=== PATIENT | male | born 1950 | race Caucasian/White ===

== ENCOUNTER → 2018-07-24 07:29 | Outpatient (CLI) | payer MEDICARE, SELFPAY ==
[2018-07-24 09:24] LABS: Alanine Aminotransferase 40 IU/L (21-72); Albumin 4.4 g/dL (3.5-5.0); Albumin Globulin Ratio 1.6 (1.0-2.8); Alkaline Phosphatase 115 U/L (38-126); Aspartate Aminotransferase 40 IU/L (17-59); BUN Creatinine Ratio 17.5 (6-22); Bilirubin Total 0.5 mg/dL (0.2-1.3); Blood Urea Nitrogen 21 mg/dL (9-20); Calcium 9.1 mg/dL (8.4-10.2); Carbon Dioxide 24 mmol/L (22-32); Chloride 103 mmol/L (98-107); Cholesterol 212 mg/dL (140-199); Estimated Glomerular Filt Rate > 60.0 mL/min (>60); Globulin 2.7 g/dL (1.7-4.1); Glucose 88 mg/dL (80-110); HDL Cholesterol 63 mg/dL (40-60); HEMOLYSIS < 15 (0-50); LDL Cholesterol Calculated 126 mg/dL (<100); Potassium 4.6 mmol/L (3.4-5.1); Sodium 138 mmol/L (137-145); Total Protein 7.1 g/dL (6.3-8.2); Triglycerides 114 mg/dL (35-150)
[2018-07-24 09:54] LABS: Prostate Specific Antigen Scrn 0.814 ng/mL (0.1-4.0)
== END ==
PROVIDERS: Family Provider Internal Medicine; PCP Internal Medicine; Visit Provider Internal Medicine
DX: E78.5 Hyperlipidemia, unspecified (principal); K21.9 Gastro-esophageal reflux disease without esophagitis; Z12.5 Encounter for screening for malignant neoplasm of prostate
CPT/HCPCS: 36415; 80053; 80061; G0103

== ENCOUNTER → 2019-11-08 07:39 | Outpatient (CLI) | payer MEDICARE, SELFPAY ==
[2019-11-08 08:12] LABS: Alanine Aminotransferase 31 IU/L (<50); Albumin 4.5 g/dL (3.5-5.0); Albumin Globulin Ratio 1.4 (1.0-2.8); Alkaline Phosphatase 122 U/L (38-126); Aspartate Aminotransferase 45 IU/L (17-59); BUN Creatinine Ratio 18.6 (6-22); Bilirubin Total 0.6 mg/dL (0.2-1.3); Blood Urea Nitrogen 19 mg/dL (9-20); Calcium 9.3 mg/dL (8.4-10.2); Carbon Dioxide 25 mmol/L (22-32); Chloride 106 mmol/L (98-107); Cholesterol 232 mg/dL (140-199); Estimated Glomerular Filt Rate > 60.0 mL/min (>60); Globulin 3.2 g/dL (1.7-4.1); Glucose 131 mg/dL (80-110); HDL Cholesterol 61 mg/dL (40-60); HEMOLYSIS < 15 (0-50); LDL Cholesterol Calculated 154 mg/dL (<100); Potassium 4.6 mmol/L (3.4-5.1); Sodium 138 mmol/L (137-145); Total Protein 7.7 g/dL (6.3-8.2); Triglycerides 86 mg/dL (35-150)
[2019-11-08 08:40] LABS: Prostate Specific Antigen Scrn 0.512 ng/mL (0.1-4.0)
== END ==
PROVIDERS: Family Provider Internal Medicine; PCP Internal Medicine; Referring Provider Internal Medicine; Visit Provider Internal Medicine
DX: Z12.5 Encounter for screening for malignant neoplasm of prostate (principal); Z13.1 Encounter for screening for diabetes mellitus; Z13.6 Encounter for screening for cardiovascular disorders; E78.5 Hyperlipidemia, unspecified
CPT/HCPCS: 36415; 80053; 80061; G0103

== ENCOUNTER → 2020-03-30 11:22 | Outpatient (CLI) | payer MEDICARE, SELFPAY ==
[2020-03-31 12:02] LABS: COVID19 Sendout Not Detected (Not Detected)
== END ==
PROVIDERS: Family Provider Internal Medicine; PCP Internal Medicine; Visit Provider Physician Assistant
DX: Z11.59 Encounter for screening for other viral diseases (principal)
CPT/HCPCS: 87635

== ENCOUNTER → 2020-08-21 09:34 | Outpatient (CLI) | payer MEDICARE, SELFPAY ==
[2020-08-21] MEDS: COVID-19 VACC, Ad26(JANSSEN)/PF 0.5 ML IM (09:44)
== END ==
PROVIDERS: Family Provider Internal Medicine; PCP Internal Medicine; Visit Provider Internal Medicine
DX: Z23 Encounter for immunization (principal)
CPT/HCPCS: 0031A; 91303

== ENCOUNTER → 2021-08-01 07:15 | Outpatient (CLI) | payer MEDICARE, SELFPAY ==
[2021-08-01 09:12] LABS: Alanine Aminotransferase 28 IU/L (<50); Albumin 4.3 g/dL (3.5-5.0); Albumin Globulin Ratio 1.5 (1.0-2.8); Alkaline Phosphatase 107 U/L (38-126); Aspartate Aminotransferase 37 IU/L (17-59); BUN Creatinine Ratio 18.3 (6-22); Bilirubin Total 0.4 mg/dL (0.2-1.3); Blood Urea Nitrogen 20 mg/dL (9-20); Calcium 9.1 mg/dL (8.4-10.2); Carbon Dioxide 27 mmol/L (22-32); Chloride 105 mmol/L (98-107); Cholesterol 203 mg/dL (140-199); Estimated Glomerular Filt Rate > 60.0 mL/min (>60); Globulin 2.8 g/dL (1.7-4.1); Glucose 109 mg/dL (80-110); HDL Cholesterol 56 mg/dL (40-60); HEMOLYSIS < 15 (0-50); LDL Cholesterol Calculated 130 mg/dL (<100); Potassium 4.7 mmol/L (3.4-5.1); Sodium 138 mmol/L (137-145); Total Protein 7.1 g/dL (6.3-8.2); Triglycerides 83 mg/dL (35-150)
== END ==
PROVIDERS: Family Provider Internal Medicine; PCP Internal Medicine; Referring Provider Internal Medicine; Visit Provider Internal Medicine
DX: Z13.6 Encounter for screening for cardiovascular disorders (principal); Z13.1 Encounter for screening for diabetes mellitus; Z13.220 Encounter for screening for lipoid disorders; Z00.00 Encounter for general adult medical examination without abnormal findings
CPT/HCPCS: 36415; 80053; 80061

== ENCOUNTER 2022-07-16 06:39 | Day surgery (SDC) | payer MEDICARE, SELFPAY ==
[2022-07-12 13:43] VITALS: BMI 28.5
[2022-07-16] VITALS (7 sets, daily range): BP systolic 94–169; BP diastolic 50–97; PULSE 60–81; RESP 10–20; TEMP 36.1–36.6; O2SAT 97–99; BMI 28.5
[2022-07-16] MEDS: LACTATED RINGERS 1,000 ML 42 ML IV ×2 (07:35→08:46)
--- NOTE | 2022-07-16 07:40 | PM.PREOP ---
Pre-operative Note Interval Note History & Physical reviewed/Exam performed by Physician: Yes Changes to H&P: No
[2022-07-16] MEDS: CEFAZOLIN 2 GM/100 ML PREMIX 100 ML IV (07:45)
[2022-07-16] MEDS: BUPIVACAINE 0.5% W/ EPI (PF) 30 ML VIAL 60 ML INJ (08:16)
--- NOTE | 2022-07-16 08:18 | SUR.OPER ---
Supine on padded OR bed, head on pillow, arms secured on padded arm boards at <90 degrees abduction, legs uncrossed, safety belt at thigh, tape over blanket over lower legs.
--- NOTE | 2022-07-16 10:54 | SUR.PHASEII ---
1045: Pt A&Ox4, denies any distress, dressing C/D/I, VSS, and ready to discharge home. Discharge instruction reviewed with patient with time allowed for questions. IV DC'd intact, pt left unit with all personal belongings and written instructions. Spouse to transport pt home.
--- NOTE | 2022-07-16 11:26 | PM.OP.1 ---
Operative Date/Time/Diagnoses Date of procedure: 07/16/22 Pre-op diagnosis: Left inguinal hernia -non recurrent. Not strangulated or gangrenous Post-op diagnosis: same Procedure & Clinicians Procedure: Left inguinal hernia repair Same procedure as scheduled: Yes Indications: Symptomatic left inguinal hernia Surgeon: Mamta Sheets Click Yes if Unassisted: Yes Anesthesia Type: MAC +/- and Local Operative Notes Findings: There was a large indirect inguinal hernia sac. There was also a direct component. Closure Type: primary Specimen(s): none sent Prosthetic devices, grafts, tissues, transplants, or devices: Mesh Procedure in detail: Patient was taken to the operating room and placed supine on the operating room table. SCDs were placed. Preoperative antibiotics administered. Sedation/monitored anesthetic care was provided by [employer]. Local anesthetic with 0.5% bupivacaine with epinephrine was used to infuse around the iliohypogastric nerve. I also injected in the skin and around the operative site throughout the case. A total of 55 cc was used. The skin was incised with a 10 blade scalpel and carried down through the subcutaneous tissues using electrocautery the external oblique fascia was identified and incised with a 15 blade and then opened with the Metzenbaum after sweeping the posterior tissues away. The external ring was thus opened. The self retaining retractor was placed and a finger was used to encircle the cord structures and placed a Minerva around them. Next I dissected free the cord structures from the hernia sac. The indirect hernia sac was freed and returned to the abdomen. The direct sac was pressed down as well. A lipoma of the cord was removed. The cord structures were carefully preserved. The mesh was attached to Hilario's ligament and using a 2-0 Prolene suture a running stitch secured the inferior portion of the mesh to the inguinal ligament. The mesh was then cut to create a new internal ring a single interrupted Prolene suture was used to close this ring through the mesh. The superior portion and lateral portions were tacked into place using interrupted loosely tied 3-0 Vicryl sutures. The external oblique fascia was closed using a running 3-0 Vicryl suture. The Lenard's fascia was closed using a 2-0 Vicryl in an interrupted fashion. The skin was closed with a running Monocryl and the wound was dressed with Steri-Strips. The patient tolerated the procedure well and went in good condition to the postoperative care unit EBL was minimal and there were no complications.
== END 2022-07-16 10:50 | disposition home or self-care (01) ==
PROVIDERS: Family Provider Internal Medicine; PCP Internal Medicine; Referring Provider Surgery; Visit Provider Surgery
PROC: (CPT 49505; principal; 2022-07-16 07:45)
DX: K40.90 Unilateral inguinal hernia, without obstruction or gangrene, not specified as recurrent (principal); D17.6 Benign lipomatous neoplasm of spermatic cord
CPT/HCPCS: 49505; J0690; J1885; J2250; J2704; J3010

== ENCOUNTER 2023-01-03 06:47 | Day surgery (SDC) | payer MEDICARE, SELFPAY ==
--- NOTE | 2023-01-03 | PATH_ITS ---
[facility] Accession Number: [id number] No. of containers..01 Tissue . 01 Material submitted: . cecum - CECAL POLYP . 01 Diagnosis: CECAL POLYP: TUBULAR ADENOMA. JNL 01/10/2023 1648 Local . 01 Electronically signed: . Klaudia Singleton MD, Pathologist NPI- [id number] . 01 Gross description: . CECAL POLYP: Received in formalin is 1 fragment(s) of vaughan, soft tissue measuring 0.4 x 0.3 x 0.2 cm submitted entirely in 1 cassette(s) /MITCH 01/10/2023 1647 Local . 01 Pathologist provided ICD-10: D12.0 . 01 CPT . 359418 Performed at: 01 [facility] [address] [place] [address] [id number] MD Tello Livingston MD Phone: [phone]
[2023-01-03] MEDS: LACTATED RINGERS 1,000 ML 42 ML IV (07:07)
[2023-01-03 07:11] VITALS: BP 158/83; PULSE 80; RESP 16; TEMP 35.8; O2SAT 97; BMI 27.7
--- NOTE | 2023-01-03 08:04 | PM.HP.1 ---
History of Present Illness History of Present Illness Date Patient Seen: 01/03/23 Time Patient Seen: 08:00 Chief complaint: SDC Narrative: 72 year old Presents today for his screening colonoscopy. His last 1 was about 12 years ago and as far as he can recall was clean with no polyps. He has no family history of colon cancer. Endorses no concerning symptoms no bleeding no change in bowel habits no cramping abdominal pain. He has no other questions or concerns and is ready to proceed. [facility] Medical History (Updated 01/03/23 @ 08:06 by Mamta Sheets MD) Erectile dysfunction (05/09/17) Essential hypertension Gastroesophageal reflux disease without esophagitis (05/20/11) Hyperlipidemia (05/20/11) Left inguinal hernia Lower urinary tract symptoms Surgical History H/O wrist surgery Family History Father Family history of prostate cancer Social History household members: spouse Smoking Status: Never smoker alcohol intake: never Meds Home Medications and Allergies Home Medications Medication Instructions Recorded Confirmed Type tadalafil 5 mg tablet 5 mg PO DAILY #90 tabs 08/15/22 01/03/23 Rx Allergies Allergy/AdvReac Type Severity Reaction Status Date / Time Sulfa (Sulfonamide Allergy Mild RASH Verified 01/03/23 07:07 Antibiotics) [SULFA (SULFONAMIDE ANTIBIOTICS)] Exam Vital Signs (past 8 hours): - 01/03/23 07:11 Temperature 96.5 F L Pulse Rate 80 Respiratory Rate 16 Blood Pressure 158/83 H Pulse Oximetry 97 Oxygen Delivery Method Room Air Oxygen Delivery Method Room Air Const General: cooperative, healthy appearing and comfortable Nutritional Appearance: average body habitus HENMT Head: normal to inspection Eyes General: appearance normal, both eyes and all related structures Resp Effort & Inspection: normal respiratory effort and able to speak in complete sentences Cardio Pulses: radial pulses present GI Palpation: soft and No tender Assessment & Plan Assessment and plan (1) Colon cancer screening: Status: Acute Assessment & Plan narrative: presents today for screening colonoscopy I discussed the risks benefits and alternatives including but not limited to perforation of the colon and an incomplete exam he fully understands these risks and would like to proceed.
[2023-01-03 08:45] VITALS: BP 123/84; PULSE 66; RESP 20; TEMP 37; O2SAT 97
[2023-01-03 08:50] VITALS: BP 123/87; PULSE 64; RESP 12; O2SAT 99
[2023-01-03 08:55] VITALS: BP 115/83; PULSE 68; RESP 12; O2SAT 99
--- NOTE | 2023-01-03 08:57 | P.OP.COLON_ITS ---
Operative Date/Time/Diagnoses Date of procedure: 01/03/23 Time of procedure: 08:57 Pre-op diagnosis: Screening for colon cancer Post-op diagnosis: same Procedure & Clinicians Study performed: Colonoscopy and biopsy Indications: Screening for colon cancer no family history no concerning symptoms Surgeon: Mamta Sheets Procedure Notes Procedure in detail: Patient was taken to the endoscopy suite and placed in a left lateral decubitus position. A time-out was performed. With the help of anesthesiologist conscious sedation was induced and monitored throughout the case. A digital rectal exam was performed and there were no masses or strictures. The colonoscope was introduced into the anal canal and advanced through to the cecum. A photograph of the appendiceal orifice was obtained. The bowel prep was good [place] bowel prep score of 2, although there were some solid particulate leaf like pieces which required additional irrigation suctioned to obtain a thorough exam. There was 1 small polyp that was photographed and removed with the biopsy forceps sent for specimen in the cecum. There were no other polyps but there were several scattered diverticula especially in the sigmoid colon. Photographs of the diverticula were obtained. The scope was t hen withdrawn for a total of 14 minutes and no polyps were seen. The scope was then retroflexed and a photograph of the internal hemorrhoidal piles was obtained. Findings: divertiulosis and polyp(s) Specimen(s): other (One small cecal polyp) Complications: none Post-procedure Plan for aftercare: Likely 7 year follow-up depending on the pathology of the polyp. Daily fiber supplementation is recommended, and a 3-5 day low fiber diet prior to next col onoscopy is advised as well. Disposition: PACU
[2023-01-03 09:00] VITALS: BP 133/87; PULSE 62; RESP 12; O2SAT 99
[2023-01-03 09:15] VITALS: BP 135/97; PULSE 71; RESP 19; O2SAT 100
== END 2023-01-03 09:26 | disposition home or self-care (01) ==
PROVIDERS: Family Provider Internal Medicine; PCP Internal Medicine; Referring Provider Surgery; Visit Provider Surgery
PROC: 0DJD8ZZ Inspection of Lower Intestinal Tract, Via Natural or Artificial Opening Endoscopic (ICD-10-PCS; CPT 45378; principal; 2023-01-03 07:45)
DX: Z12.11 Encounter for screening for malignant neoplasm of colon (principal); K57.30 Diverticulosis of large intestine without perforation or abscess without bleeding; D12.0 Benign neoplasm of cecum
CPT/HCPCS: 45380; J2704

== ENCOUNTER → 2023-12-04 06:57 | Outpatient (CLI) | payer MEDICARE, SELFPAY ==
[2023-12-04 07:28] LABS: Add Manual Diff / Slide Review NO; Basophils Absolute Auto 100 /uL (0-100); Basophils Percent Auto 0.7 % (0-2); Eosinophils Absolute Auto 400 /uL (0-450); Eosinophils Percent Auto 5.6 % (2-4); Hematocrit 49.9 % (41-53); Hemoglobin 16.8 g/dL (13.5-17.5); Lymphocytes Absolute Auto 2400 /uL (1100-4500); Lymphocytes Percent Auto 31.6 % (25-40); Mean Corpuscular HGB Conc 33.6 % (30-36); Mean Corpuscular Hemoglobin 29.6 PG (26-34); Mean Corpuscular Volume 88.1 fL (80-100); Monocytes Absolute Auto 600 /uL (0-900); Monocytes Percent Auto 8.3 % (3-14); Neutrophils Absolute Auto 4000 /uL (1500-7000); Neutrophils Percent Auto 53.8 % (50-75); Platelet Count 263 X10^3/uL (150-400); Red Blood Cell Count 5.67 X10^6/uL (4.5-5.9); Red Cell Distribution Width 13.9 % (11.6-14.8); White Blood Cell Count 7.5 X10^3/uL (4.5-11.0)
[2023-12-04 08:32] LABS: Alanine Aminotransferase 34 IU/L (<50); Albumin 4.7 g/dL (3.5-5.0); Albumin Globulin Ratio 1.6 (1.0-2.8); Alkaline Phosphatase 124 U/L (38-126); Aspartate Aminotransferase 37 IU/L (17-59); BUN Creatinine Ratio 11.7 (6-22); Bilirubin Total 1.1 mg/dL (0.2-1.3); Blood Urea Nitrogen 13 mg/dL (9-20); Calcium 9.2 mg/dL (8.4-10.2); Carbon Dioxide 25 mmol/L (22-32); Chloride 104 mmol/L (98-107); Cholesterol 231 mg/dL (140-199); Estimated Glomerular Filt Rate > 60 mL/min (>60); Glucose 107 mg/dL (80-110); HDL Cholesterol 69 mg/dL (40-60); HEMOLYSIS < 15 (0-50); LDL Cholesterol Calculated 143 mg/dL (<100); Potassium 4.8 mmol/L (3.4-5.1); Sodium 137 mmol/L (137-145); Total Protein 7.7 g/dL (6.3-8.2); Triglycerides 97 mg/dL (35-150)
[2023-12-04 08:57] LABS: TSH w/ Reflex to FT4 1.14 uIU/mL (0.47-4.68)
== END ==
PROVIDERS: Family Provider Internal Medicine; PCP Internal Medicine; Referring Provider Internal Medicine; Visit Provider Internal Medicine
DX: Z13.220 Encounter for screening for lipoid disorders (principal); I10 Essential (primary) hypertension; Z13.6 Encounter for screening for cardiovascular disorders; K21.9 Gastro-esophageal reflux disease without esophagitis; D64.9 Anemia, unspecified; E03.9 Hypothyroidism, unspecified
CPT/HCPCS: 36415; 80053; 80061; 84443; 85025